=== PATIENT | male | born 1995 | race Caucasian/White ===

== ENCOUNTER 2017-05-04 12:56 | Emergency (ER) | payer BC ==
[2017-05-04 15:33] LABS: ADD MAN DIFF? NO
[2017-05-04 15:37] LABS: BASOPHILS % 0.7 % (0.0-2.0); EOSINOPHILS % 0.7 % (0.0-7.0); HEMOGLOBIN 15.2 g/dl (14.0-18.0); LYMPHOCYTES # 1.5 10^3/ul (0.8-2.9); LYMPHOCYTES % 27.2 % (15.0-51.0); MEAN CORPUSCULAR HEMOGLOBIN 30.3 pg (29.0-33.0); MEAN CORPUSCULAR HGB CONC 33.8 g/dl (32.0-37.0); MEAN CORPUSCULAR VOLUME 89.6 fl (82.0-101.0); MEAN PLATELET VOLUME 10.8 fl (7.4-10.4); MONOCYTE # 0.3 10^3/ul (0.3-0.9); MONOCYTES % 4.8 % (0.0-11.0); NEUTROPHIL # 3.8 10^3/ul (1.6-7.5); NEUTROPHILS % 66.4 % (39.0-77.0); PLATELET COUNT 187 10^3/UL (140-415); RED BLOOD COUNT 5.02 10^6/ul (4.70-6.10)
[2017-05-04 15:37] LABS: WHITE BLOOD COUNT 5.7 10^3/ul (4.8-10.8)
[2017-05-04 16:00] LABS: ANION GAP 20 (8-16); BLOOD UREA NITROGEN 10 mg/dl (7-20); CALCIUM 10.1 mg/dl (8.4-10.2); CARBON DIOXIDE 29 mmol/L (21-31); CHLORIDE 102 mmol/L (97-110); GLUCOSE 82 mg/dl (70-220); POTASSIUM 4.7 mmol/L (3.5-5.1); SODIUM 146 mmol/L (135-144)
[2017-05-04 16:47] LABS: HIV 1&2 ANTIBODY NEGATIVE (NEGATIVE)
== END 2017-05-04 17:20 | disposition home or self-care (01) ==
LOC: FTE 12:56
DX: L04.0 Acute lymphadenitis of face, head and neck (principal); J45.909 Unspecified asthma, uncomplicated
CPT/HCPCS: 36415; 76536; 80048; 84443; 85025; 86703; 99284-25

== ENCOUNTER 2017-07-04 17:24 | Inpatient (IN) | payer BC ==
[2017-07-04 20:08] LABS: ADD MAN DIFF? NO
[2017-07-04 20:22] LABS: WHITE BLOOD COUNT 5.7 10^3/ul (4.8-10.8)
[2017-07-04 20:22] LABS: BASOPHILS % 0.5 % (0.0-2.0); EOSINOPHILS # 0.1 10^3/ul (0.0-0.5); EOSINOPHILS % 2.3 % (0.0-7.0); HEMOGLOBIN 14.1 g/dl (14.0-18.0); LYMPHOCYTES # 1.9 10^3/ul (0.8-2.9); LYMPHOCYTES % 33.9 % (15.0-51.0); MEAN CORPUSCULAR HEMOGLOBIN 29.7 pg (29.0-33.0); MEAN CORPUSCULAR HGB CONC 32.8 g/dl (32.0-37.0); MEAN CORPUSCULAR VOLUME 90.5 fl (82.0-101.0); MEAN PLATELET VOLUME 10.3 fl (7.4-10.4); MONOCYTE # 0.5 10^3/ul (0.3-0.9); MONOCYTES % 8.5 % (0.0-11.0); NEUTROPHIL # 3.1 10^3/ul (1.6-7.5); NEUTROPHILS % 54.3 % (39.0-77.0); PLATELET COUNT 166 10^3/UL (140-415); RED BLOOD COUNT 4.75 10^6/ul (4.70-6.10); RED CELL DISTRIBUTION WIDTH 12.2 % (11.5-14.5)
[2017-07-04 20:29] LABS: ANION GAP 12 (8-16); BLOOD UREA NITROGEN 15 mg/dl (7-20); CALCIUM 9.3 mg/dl (8.4-10.2); CARBON DIOXIDE 33 mmol/L (21-31); CHLORIDE 103 mmol/L (97-110); CREATININE 1.14 mg/dl (0.61-1.24); GLUCOSE 98 mg/dl (70-220); SODIUM 144 mmol/L (135-144)
[2017-07-04 20:41] LABS: AMPHETAMINE/METHAMPHETAMINE NEGATIVE (NEGATIVE); BARBITURATES NEGATIVE (NEGATIVE); BENZODIAZEPINES NEGATIVE (NEGATIVE); CANNABINOIDS NEGATIVE (NEGATIVE); COCAINE NEGATIVE (NEGATIVE); OPIATES NEGATIVE (NEGATIVE)
[2017-07-04 20:44] LABS: B-TYPE NATRIURETIC PEPTIDE 30 PG/ML (0-125)
[2017-07-04 20:46] LABS: TROPONIN-I < 0.012 ng/ml (0.00-0.12)
[2017-07-04 20:50] LABS: FREE THYROXINE INDEX (Calc) 2.61 ug/ml (0.65-3.89); T3 UPTAKE 35.8 % (23.5-40.5); T4 (THYROXINE) 7.3 ug/dl (5.5-11.0)
[2017-07-04] MEDS ORDERED: NACL 0.9% 3 ML SYG IV (22:00)
[2017-07-04] MEDS ORDERED: ONDANSETRON 4 MG INJ IV (22:00)
[2017-07-04 22:15] LABS: D-DIMER 328.22 ng/ml (<460)
[2017-07-04] MEDS: SOD CHLORIDE 0.9% 500 ML IV (22:18)
[2017-07-04] MEDS: HYDROCODONE/APAP (5/325) TAB PO (22:18)
[2017-07-04] MEDS: KETOROLAC 30 MG INJ IV (22:18)
[2017-07-05] MEDS: PANTOPRAZOLE (EC) 40 MG TAB PO (05:42)
[2017-07-05] MEDS: SOD CHLORIDE 0.9% 100 ML (09:00)
[2017-07-05] MEDS: IOHEXOL 300MG/ML 150 ML BTL (09:00)
[2017-07-05 10:47] LABS: ADD MAN DIFF? NO
[2017-07-05 10:51] LABS: BASOPHILS % 0.6 % (0.0-2.0); EOSINOPHILS # 0.2 10^3/ul (0.0-0.5); EOSINOPHILS % 3.3 % (0.0-7.0); HEMATOCRIT 47.9 % (42.0-52.0); HEMOGLOBIN 15.4 g/dl (14.0-18.0); LYMPHOCYTES # 1.3 10^3/ul (0.8-2.9); LYMPHOCYTES % 24.4 % (15.0-51.0); MEAN CORPUSCULAR HEMOGLOBIN 29.1 pg (29.0-33.0); MEAN CORPUSCULAR HGB CONC 32.2 g/dl (32.0-37.0); MEAN CORPUSCULAR VOLUME 90.5 fl (82.0-101.0); MEAN PLATELET VOLUME 10.5 fl (7.4-10.4); MONOCYTE # 0.5 10^3/ul (0.3-0.9); MONOCYTES % 8.3 % (0.0-11.0); NEUTROPHIL # 3.4 10^3/ul (1.6-7.5); PLATELET COUNT 174 10^3/UL (140-415); RED BLOOD COUNT 5.29 10^6/ul (4.70-6.10); RED CELL DISTRIBUTION WIDTH 12.2 % (11.5-14.5)
[2017-07-05 10:51] LABS: WHITE BLOOD COUNT 5.5 10^3/ul (4.8-10.8)
[2017-07-05 11:17] LABS: ALANINE AMINOTRANSFERASE 35 IU/L (13-69); ALBUMIN 4.4 g/dl (3.3-4.9); ALBUMIN/GLOBULIN RATIO 1.29; ALKALINE PHOSPHATASE 47 IU/L (42-121); ANION GAP 15 (8-16); ASPARTATE AMINO TRANSFERASE 31 IU/L (15-46); BLOOD UREA NITROGEN 14 mg/dl (7-20); CALCIUM 9.3 mg/dl (8.4-10.2); CARBON DIOXIDE 30 mmol/L (21-31); CHLORIDE 102 mmol/L (97-110); CHOL/HDL RATIO 2.4 RATIO; CHOLESTEROL 128 mg/dl (100-200); CREATININE 1.07 mg/dl (0.61-1.24); GLUCOSE 72 mg/dl (70-220); HDL CHOLESTEROL 53 mg/dl (30-63); LDL CHOLESTEROL,CALCULATED 50 mg/dl; MAGNESIUM 1.9 mg/dl (1.7-2.5); POTASSIUM 4.4 mmol/L (3.5-5.1); SODIUM 143 mmol/L (135-144); TOTAL PROTEIN 7.8 g/dl (6.1-8.1); TRIGLYCERIDES 126 mg/dl (0-149)
[2017-07-05 11:18] LABS: IRON 115 ug/dl (35-150)
[2017-07-05 11:27] LABS: % IRON SATURATION 34 % SAT (22-52); CREATINE KINASE 392 IU/L (23-200); TOTAL IRON BINDING CAPACITY 337 ug/dl (241-421)
[2017-07-05 11:40] LABS: CK INDEX 0.5
[2017-07-05 11:41] LABS: TROPONIN-I < 0.012 ng/ml (0.00-0.12)
[2017-07-05 11:58] LABS: HEMOGLOBIN A1C 5.3 % (0-5.9)
[2017-07-05] MEDS: MAGNESIUM SULFATE 2 GM/50 ML 50 ML IVPB (12:35)
[2017-07-05 15:24] LABS: FERRITIN 36.4 ng/ml (17.9-464.0)
[2017-07-05 17:29] LABS: MONOTEST Negative (NEG)
[2017-07-06] MEDS: PANTOPRAZOLE (EC) 40 MG TAB PO (05:51)
[2017-07-06 06:42] LABS: ADD MAN DIFF? NO
[2017-07-06 06:47] LABS: BASOPHILS % 0.7 % (0.0-2.0); EOSINOPHILS # 0.3 10^3/ul (0.0-0.5); EOSINOPHILS % 5.7 % (0.0-7.0); HEMOGLOBIN 14.8 g/dl (14.0-18.0); LYMPHOCYTES # 1.6 10^3/ul (0.8-2.9); LYMPHOCYTES % 36.1 % (15.0-51.0); MEAN CORPUSCULAR HEMOGLOBIN 29.3 pg (29.0-33.0); MEAN CORPUSCULAR HGB CONC 32.2 g/dl (32.0-37.0); MEAN CORPUSCULAR VOLUME 91.1 fl (82.0-101.0); MEAN PLATELET VOLUME 10.9 fl (7.4-10.4); MONOCYTE # 0.5 10^3/ul (0.3-0.9); MONOCYTES % 10.8 % (0.0-11.0); NEUTROPHIL # 2.1 10^3/ul (1.6-7.5); NEUTROPHILS % 46.5 % (39.0-77.0); PLATELET COUNT 160 10^3/UL (140-415); RED BLOOD COUNT 5.05 10^6/ul (4.70-6.10); RED CELL DISTRIBUTION WIDTH 11.9 % (11.5-14.5)
[2017-07-06 06:47] LABS: WHITE BLOOD COUNT 4.5 10^3/ul (4.8-10.8)
[2017-07-06 07:22] LABS: ALANINE AMINOTRANSFERASE 29 IU/L (13-69); ALBUMIN 3.9 g/dl (3.3-4.9); ALBUMIN/GLOBULIN RATIO 1.34; ALKALINE PHOSPHATASE 42 IU/L (42-121); ANION GAP 13 (8-16); ASPARTATE AMINO TRANSFERASE 48 IU/L (15-46); BILIRUBIN,INDIRECT 0.5 mg/dl (0-1.1); BILIRUBIN,TOTAL 0.5 mg/dl (0.2-1.3); BLOOD UREA NITROGEN 12 mg/dl (7-20); CALCIUM 9.3 mg/dl (8.4-10.2); CARBON DIOXIDE 31 mmol/L (21-31); CHLORIDE 105 mmol/L (97-110); CREATININE 1.06 mg/dl (0.61-1.24); GLUCOSE 104 mg/dl (70-220); POTASSIUM 4.3 mmol/L (3.5-5.1); SODIUM 145 mmol/L (135-144); TOTAL PROTEIN 6.8 g/dl (6.1-8.1)
[2017-07-06 13:37] LABS: ANA SCREEN NEGATIVE (NEGATIVE)
[2017-07-06] MEDS: VERAPAMIL (SR) 120 MG TAB PO (15:48)
[2017-07-06 16:11] LABS: ADD UMIC NO; UR ASCORBIC ACID NEGATIVE (NEGATIVE); UR BILIRUBIN (Dip) NEGATIVE (NEGATIVE); UR BLOOD (Dip) NEGATIVE (NEGATIVE); UR CLARITY CLEAR (CLEAR); UR COLOR COLORLESS (YELLOW); UR GLUCOSE (Dip) NEGATIVE (NEGATIVE); UR KETONES (Dip) NEGATIVE (NEGATIVE); UR LEUKOCYTE ESTERASE (Dip) NEGATIVE Leu/ul (NEGATIVE); UR NITRITE (Dip) NEGATIVE (NEGATIVE); UR SPECIFIC GRAVITY (Dip) 1.001 (1.003-1.030); UR TOTAL PROTEIN (Dip) NEGATIVE (NEGATIVE); UR UROBILINOGEN (Dip) NEGATIVE (NEGATIVE)
[2017-07-07] MEDS: PANTOPRAZOLE (EC) 40 MG TAB PO (05:54)
[2017-07-07] MEDS: VERAPAMIL (SR) 120 MG TAB PO ×2 (09:00→12:02)
[2017-07-08] MEDS: PANTOPRAZOLE (EC) 40 MG TAB PO (06:00)
[2017-07-08] MEDS: VERAPAMIL (SR) 120 MG TAB PO (09:00)
[2017-07-08] MEDS: LIDOCAINE 4% SOLUTION 50 ML BTL (10:49)
[2017-07-08] MEDS: PROPOFOL 40 ML (10:52)
[2017-07-08] MEDS ORDERED: AL HYDROX/MG HYDROX/SIMETH 30 ML CUP PO (15:30)
[2017-07-08] MEDS: AL HYDROX/MG HYDROX/SIMETH 30 ML CUP PO (16:17)
[2017-07-09 05:21] LABS: ADD MAN DIFF? NO
[2017-07-09 05:27] LABS: BASOPHILS % 0.5 % (0.0-2.0); EOSINOPHILS # 0.4 10^3/ul (0.0-0.5); EOSINOPHILS % 5.5 % (0.0-7.0); HEMATOCRIT 45.6 % (42.0-52.0); HEMOGLOBIN 15.2 g/dl (14.0-18.0); LYMPHOCYTES # 2.2 10^3/ul (0.8-2.9); LYMPHOCYTES % 33.9 % (15.0-51.0); MEAN CORPUSCULAR HEMOGLOBIN 29.3 pg (29.0-33.0); MEAN CORPUSCULAR HGB CONC 33.3 g/dl (32.0-37.0); MEAN PLATELET VOLUME 11.1 fl (7.4-10.4); MONOCYTE # 0.7 10^3/ul (0.3-0.9); MONOCYTES % 10.5 % (0.0-11.0); NEUTROPHIL # 3.2 10^3/ul (1.6-7.5); NEUTROPHILS % 49.4 % (39.0-77.0); PLATELET COUNT 167 10^3/UL (140-415); RED BLOOD COUNT 5.18 10^6/ul (4.70-6.10); RED CELL DISTRIBUTION WIDTH 11.9 % (11.5-14.5)
[2017-07-09 05:27] LABS: WHITE BLOOD COUNT 6.5 10^3/ul (4.8-10.8)
[2017-07-09 05:56] LABS: ALANINE AMINOTRANSFERASE 31 IU/L (13-69); ALBUMIN/GLOBULIN RATIO 1.17; ALKALINE PHOSPHATASE 45 IU/L (42-121); ANION GAP 15 (8-16); ASPARTATE AMINO TRANSFERASE 28 IU/L (15-46); BILIRUBIN,INDIRECT 0.8 mg/dl (0-1.1); BILIRUBIN,TOTAL 0.8 mg/dl (0.2-1.3); BLOOD UREA NITROGEN 14 mg/dl (7-20); CARBON DIOXIDE 30 mmol/L (21-31); CHLORIDE 103 mmol/L (97-110); CREATININE 1.14 mg/dl (0.61-1.24); GLUCOSE 89 mg/dl (70-220); POTASSIUM 3.8 mmol/L (3.5-5.1); SODIUM 144 mmol/L (135-144); TOTAL PROTEIN 7.4 g/dl (6.1-8.1)
[2017-07-09] MEDS: PANTOPRAZOLE (EC) 40 MG TAB PO (06:02)
[2017-07-09] MEDS: VERAPAMIL (SR) 120 MG TAB PO (09:00)
[2017-07-09 17:45] LABS: ADD UMIC NO; UR ASCORBIC ACID NEGATIVE (NEGATIVE); UR BILIRUBIN (Dip) NEGATIVE (NEGATIVE); UR BLOOD (Dip) NEGATIVE (NEGATIVE); UR CLARITY CLEAR (CLEAR); UR COLOR COLORLESS (YELLOW); UR GLUCOSE (Dip) NEGATIVE (NEGATIVE); UR KETONES (Dip) NEGATIVE (NEGATIVE); UR LEUKOCYTE ESTERASE (Dip) NEGATIVE Leu/ul (NEGATIVE); UR NITRITE (Dip) NEGATIVE (NEGATIVE); UR SPECIFIC GRAVITY (Dip) 1.002 (1.003-1.030); UR TOTAL PROTEIN (Dip) NEGATIVE (NEGATIVE); UR UROBILINOGEN (Dip) NEGATIVE (NEGATIVE)
[2017-07-10 05:21] LABS: ADD MAN DIFF? NO
[2017-07-10 05:28] LABS: WHITE BLOOD COUNT 5.1 10^3/ul (4.8-10.8)
[2017-07-10 05:28] LABS: BASOPHILS % 0.6 % (0.0-2.0); EOSINOPHILS # 0.4 10^3/ul (0.0-0.5); HEMATOCRIT 45.2 % (42.0-52.0); HEMOGLOBIN 14.8 g/dl (14.0-18.0); LYMPHOCYTES # 2.3 10^3/ul (0.8-2.9); LYMPHOCYTES % 44.6 % (15.0-51.0); MEAN CORPUSCULAR HEMOGLOBIN 29.4 pg (29.0-33.0); MEAN CORPUSCULAR HGB CONC 32.7 g/dl (32.0-37.0); MEAN CORPUSCULAR VOLUME 89.9 fl (82.0-101.0); MEAN PLATELET VOLUME 11.2 fl (7.4-10.4); MONOCYTE # 0.5 10^3/ul (0.3-0.9); MONOCYTES % 9.3 % (0.0-11.0); NEUTROPHILS % 38.3 % (39.0-77.0); PLATELET COUNT 169 10^3/UL (140-415); RED BLOOD COUNT 5.03 10^6/ul (4.70-6.10); RED CELL DISTRIBUTION WIDTH 11.7 % (11.5-14.5)
[2017-07-10] MEDS: PANTOPRAZOLE (EC) 40 MG TAB PO (05:33)
[2017-07-10 05:42] LABS: ALANINE AMINOTRANSFERASE 32 IU/L (13-69); ALBUMIN 3.9 g/dl (3.3-4.9); ALBUMIN/GLOBULIN RATIO 1.18; ALKALINE PHOSPHATASE 41 IU/L (42-121); ANION GAP 13 (8-16); ASPARTATE AMINO TRANSFERASE 28 IU/L (15-46); BILIRUBIN,INDIRECT 0.8 mg/dl (0-1.1); BILIRUBIN,TOTAL 0.8 mg/dl (0.2-1.3); BLOOD UREA NITROGEN 11 mg/dl (7-20); CALCIUM 9.5 mg/dl (8.4-10.2); CARBON DIOXIDE 32 mmol/L (21-31); CHLORIDE 103 mmol/L (97-110); GLUCOSE 88 mg/dl (70-220); POTASSIUM 4.3 mmol/L (3.5-5.1); SODIUM 144 mmol/L (135-144); TOTAL PROTEIN 7.2 g/dl (6.1-8.1)
[2017-07-10] MEDS: VERAPAMIL (SR) 120 MG TAB PO (07:54)
[2017-07-11] MEDS: PANTOPRAZOLE (EC) 40 MG TAB PO (05:42)
[2017-07-11] MEDS: VERAPAMIL (SR) 120 MG TAB PO (08:49)
[2017-07-11] MEDS: ACETAMINOPHEN 325 MG TAB PO (22:42)
[2017-07-12] MEDS: PANTOPRAZOLE (EC) 40 MG TAB PO (06:16)
[2017-07-12] MEDS: VERAPAMIL (SR) 120 MG TAB PO (08:36)
[2017-07-12 14:45] LABS: HAAIG REFLEX REFLEX FILED
[2017-07-12 15:36] LABS: HEPATITIS B SURFACE ANTIGEN NEGATIVE (NEGATIVE)
[2017-07-12 15:55] LABS: HEPATITIS B CORE ANTIBODY NEGATIVE (NEGATIVE); HEPATITIS C VIRAL ANTIBODY NEGATIVE (NEGATIVE)
== END 2017-07-12 16:50 | disposition home or self-care (01) | DRG 310 ==
LOC: MS3 21:40 → E/R 17:24 → MS2 07-10 22:13
PROC: 0DB58ZX Excision of Esophagus, Via Natural or Artificial Opening Endoscopic, Diagnostic (ICD-10-PCS; principal; 2017-07-08 10:10)
PROC: 0DB68ZX Excision of Stomach, Via Natural or Artificial Opening Endoscopic, Diagnostic (ICD-10-PCS; 2017-07-08 10:10)
DX: R00.1 Bradycardia, unspecified (principal); K21.0 Gastro-esophageal reflux disease with esophagitis; I49.3 Ventricular premature depolarization; R13.11 Dysphagia, oral phase; R13.10 Dysphagia, unspecified; R53.83 Other fatigue; R42 Dizziness and giddiness; M25.532 Pain in left wrist
CPT/HCPCS: 70492; 71045; 73100; 74230; 76536; 76775; 80048; 80053; 80061; 80307; 81003; 82306; 82550; 82553; 82652; 82728; 83036; 83540; 83735; 83880; 84436; 84443; 84479; 84484; 85025; 85378; 86038; 86308; 86704; 86709; 86803; 87340; 88305; 88312; 92526; 92610; 92611; 93005; 93306; 96374; 99285-25